=== PATIENT | female | born 1955 ===

== ENCOUNTER 2024-07-07 10:24 | Outpatient (RCR) | payer MEDICARE, SELFPAY | END 2024-07-11 23:59 | disposition home or self-care (01) | LOC: CR 10:24 | PROVIDERS: Visit Provider Internal Medicine Cardiovascular Disease ==

== ENCOUNTER 2024-07-21 11:00 | Outpatient (RCR) | payer MEDICARE, SELFPAY ==
--- NOTE | 2024-07-21 10:45 | RT.EKG_ITS ---
APPROVED REPORT Exam: Resting ECG Reason for Exam: CR Intake Appointment - Baseline EKG Patient Location: O HR:59 bpm ECG Measurements Heart Rate 59 AXIS AK 159 P 37 QRSd 80 QRS -37 QT 448 T 52 QTc 444 Conclusion Sinus rhythm...normal P axis, V-rate 50- 99 Left anterior fascicular block Late transition Nondiagnostic ST-T abnormalities
== END 2024-08-11 23:59 | disposition home or self-care (01) ==
LOC: CR 11:00
PROVIDERS: Visit Provider Internal Medicine Cardiovascular Disease
DX: I21.4 Non-ST elevation (NSTEMI) myocardial infarction (principal); R73.03 Prediabetes; Z95.5 Presence of coronary angioplasty implant and graft; Z51.89 Encounter for other specified aftercare
CPT/HCPCS: S9472

== ENCOUNTER 2024-07-30 08:18 | Outpatient (RCR) | payer MEDICARE, SELFPAY | END 2024-08-11 23:59 | disposition home or self-care (01) | LOC: CR 08:18 | PROVIDERS: Visit Provider Internal Medicine Cardiovascular Disease | DX: I25.10 Atherosclerotic heart disease of native coronary artery without angina pectoris (principal); Z95.5 Presence of coronary angioplasty implant and graft; Z51.89 Encounter for other specified aftercare | CPT/HCPCS: S9472 ==

== ENCOUNTER 2024-09-10 08:22 | Outpatient (RCR) | payer MEDICARE, SELFPAY | END 2024-09-10 23:59 | disposition home or self-care (01) | LOC: CR 08:22 | PROVIDERS: Visit Provider Internal Medicine Cardiovascular Disease | DX: I25.10 Atherosclerotic heart disease of native coronary artery without angina pectoris (principal); Z95.5 Presence of coronary angioplasty implant and graft; Z51.89 Encounter for other specified aftercare | CPT/HCPCS: S9472 ==

== ENCOUNTER 2024-09-12 09:20 | Outpatient (RCR) | payer MEDICARE, SELFPAY | END 2024-10-11 23:59 | disposition home or self-care (01) | LOC: CR 09:20 | PROVIDERS: Visit Provider Internal Medicine Cardiovascular Disease ==

== ENCOUNTER 2024-10-10 08:29 | Outpatient (RCR) | payer MEDICARE, SELFPAY | END 2024-10-11 23:59 | disposition home or self-care (01) | LOC: CR 08:29 | PROVIDERS: Visit Provider Internal Medicine Cardiovascular Disease | DX: I25.10 Atherosclerotic heart disease of native coronary artery without angina pectoris (principal); Z95.5 Presence of coronary angioplasty implant and graft; Z51.89 Encounter for other specified aftercare | CPT/HCPCS: S9472 ==

== ENCOUNTER 2024-10-24 08:00 | Outpatient (RCR) | payer MEDICARE, SELFPAY | END 2024-11-10 23:59 | disposition home or self-care (01) | LOC: CR 08:00 | PROVIDERS: Visit Provider Internal Medicine Cardiovascular Disease | DX: I25.10 Atherosclerotic heart disease of native coronary artery without angina pectoris (principal); Z51.89 Encounter for other specified aftercare; Z95.5 Presence of coronary angioplasty implant and graft | CPT/HCPCS: S9472 ==

== ENCOUNTER 2024-12-01 08:00 | Outpatient (RCR) | payer MEDICARE, SELFPAY | END 2024-12-11 23:59 | disposition home or self-care (01) | LOC: CR 08:00 | PROVIDERS: Visit Provider Internal Medicine Cardiovascular Disease | DX: I25.10 Atherosclerotic heart disease of native coronary artery without angina pectoris (principal); Z95.5 Presence of coronary angioplasty implant and graft; Z51.89 Encounter for other specified aftercare | CPT/HCPCS: S9472 ==

== ENCOUNTER 2025-03-11 11:00 | Outpatient (RCR) | payer SELFPAY ==
[2025-02-11 11:23] VITALS: BP 140/71; PULSE 55
[2025-02-25 12:39] VITALS: BP 143/71; PULSE 64
[2025-02-27 12:53] VITALS: BP 128/67; PULSE 63
[2025-03-04 11:18] VITALS: BP 134/79; PULSE 59
[2025-03-06 11:10] VITALS: BP 129/68; PULSE 65; O2SAT 94
[2025-03-11 11:22] VITALS: BP 133/77; PULSE 57
== END 2025-03-13 23:59 | disposition home or self-care (01) ==
LOC: CR 11:00
PROVIDERS: Visit Provider Internal Medicine Cardiovascular Disease
DX: R69 Illness, unspecified (principal)